=== PATIENT | male | born 1970 | race Hispanic/Latino ===

== ENCOUNTER 2017-11-15 14:54 | Inpatient (IN) | payer OTHER ==
[2017-11-15 15:57] LABS: Basophils # (Auto) 0.1 K/mm3 (0.0-0.1); Basophils % (Auto) 0.9 % (0.0-1.8); Eosinophils # (Auto) 0.9 K/mm3 (0.0-0.4); Eosinophils % (Auto) 6.8 % (0.0-4.3); Hematocrit 33.3 % (35.5-45.6); Hemoglobin 11.2 gm/dl (11.8-15.2); Lymphocytes % (Auto) 14.7 % (13.4-35.0); Mean Corpuscular HGB Conc 34 % (32-34); Mean Corpuscular Hemoglobin 30 pg (28-32); Mean Corpuscular Volume 88 fl (84-94); Monocytes % (Auto) 7.1 % (0.0-7.3); Platelet Count 472 K/mm3 (140-440); Red Blood Count 3.77 M/mm3 (3.65-5.03); Red Cell Distribution Width 14.5 % (13.2-15.2)
--- NOTE | 2017-11-15 15:58 | Emergency Department Report ---
HPI - General Chief Complaint: Chest Pain Time Seen by Provider: 11/15/17 15:30 - HPI HPI: Room 4 The patient is a 47-year-old male presenting with chief complaint of tachycardia. The patient had a aortic valve replacement and annuloplasty 2 weeks ago at [facility]. The patient states 2 days ago began noticing palpitations. The patient states he seems to be a little more short of breath with exertion over the past 2 days. The patient denies any history of fever. Patient had a follow-up with his customer service advocate today (Dr. Gastelum) when turned out the patient to be in atrial flutter and the patient to the ED to be admitted and to consider KHADAR/cardioversion Location: Chest, see above Duration: [See above] Quality: Tachycardia Severity: Moderate Modifying factors: [see above] Context: [see above] Mode of transportation: [not driving] ED Past Medical Hx - Past Medical History Previous Medical History?: Yes - Surgical History Past Surgical History?: Yes Hx Open Heart Surgery: Yes (aortic valve replacement, annuloplasty) - Family History Family history: no significant - Social History Smoking Status: Former Smoker (none since May 2017) Substance Use Type: None (denies illicit drug use), Alcohol (rarely) ED Review of Systems ROS: Stated complaint: FAST HEART RATE, SENT FROM DOCTOR'S OFFICE Other details as noted in HPI Constitutional: denies: fever Respiratory: shortness of breath, SOB with exertion Cardiovascular: chest pain, palpitations, dyspnea on exertion Physical Exam - Physical Exam Vital Signs: Vital Signs 11/15/17 15:06 Temperature 97.6 F Pulse Rate 139 H Respiratory 18 Rate Blood Pressure 133/95 O2 Sat by Pulse 99 Oximetry Physical Exam: GENERAL: The patient is well-developed well-nourished male sitting on stretcher not appearing to be in acute distress. [] HEENT: Normocephalic. Atraumatic. Extraocular motions are intact. Patient has moist mucous membranes. NECK: Supple. No meningitic signs are noted. There is no adenopathy noted. CHEST/LUNGS: Clear to auscultation. There is no respiratory distress noted. HEART/CARDIOVASCULAR: Regular. There is no tachycardia. There is no gallop rub or murmur. ABDOMEN: Abdomen is soft, nontender. Patient has normal bowel sounds. There is no abdominal distention. SKIN: There is no rash. There is no edema. There is no diaphoresis. NEURO: The patient is awake, alert, and oriented. The patient is cooperative. The patient has no focal neurologic deficits. The patient has normal speech and gait. MUSCULOSKELETAL: There is no tenderness or deformity. There is no limitation range of motion. There is no evidence of acute injury. ED Course Vital Signs 11/15/17 15:06 Temperature 97.6 F Pulse Rate 139 H Respiratory 18 Rate Blood Pressure 133/95 O2 Sat by Pulse 99 Oximetry - Consultations Consultation #1: 11/15/17 16:10 Case discussed with [facility] ([place])- states she discussed the case with Dr. Jain and he prefers to use diltiazem for rate control ED Medical Decision Making - Lab Data Result diagrams: 11/15/17 15:43 11/15/17 15:43 Laboratory Tests 11/15/17 11/15/17 11/15/17 15:43 15:43 15:43 WBC 13.9 H RBC 3.77 Hgb 11.2 L Hct 33.3 L MCV 88 MCH 30 MCHC 34 RDW 14.5 Plt Count 472 H Lymph % (Auto) 14.7 [place] % (Auto) 7.1 Eos % (Auto) 6.8 H Baso % (Auto) 0.9 Lymph # 2.0 [place] # 1.0 H Eos # 0.9 H Baso # 0.1 Seg Neutrophils % 70.5 H Seg Neutrophils # 9.8 H PT 13.7 INR 1.00 APTT 42.4 H Sodium 139 Potassium 4.2 Chloride 97.5 L Carbon Dioxide 27 Anion Gap 19 BUN 34 H Creatinine 0.8 Estimated GFR > 60 BUN/Creatinine Ratio 43 Glucose 109 H Calcium 9.0 Total Creatine Kinase 35 L CK-MB (CK-2) 1.6 CK-MB (CK-2) Rel Index 4.5 H Troponin T 0.050 H - EKG Data -: EKG Interpreted by Me EKG shows normal: sinus rhythm Rate: tachycardia - EKG Data When compared to previous EKG there are: previous EKG unavailable - Radiology Data Radiology results: image reviewed (chest x-ray) interpreted by me: Chest x-ray-no focal infiltrates, no pneumothorax, no pleural effusion - Differential Diagnosis atrial flutter, hyperthyroidism, anemia Critical care attestation.: If time is entered above; I have spent that time in minutes in the direct care of this critically ill patient, excluding procedure time. ED Disposition Clinical Impression: Palpitations, Tachycardia Disposition: DC-09 OP ADMIT IP TO THIS HOSP Is pt being admited?: Yes Does the pt Need Aspirin: Yes Condition: Fair Time of Disposition: 16:21 (hospitalist notified (Dr Ayala))
[2017-11-15 16:04] LABS: Partial Thromboplastin Time 42.4 Sec. (24.2-36.6)
[2017-11-15] MEDS ORDERED: CARDIZEM/D5W 100MG/100ML 100 MG/100 ML BAG IV ONE (16:09)
[2017-11-15 16:10] LABS: Creatine Kinase MB 1.6 ng/mL (0.0-4.0)
[2017-11-15 16:13] LABS: BUN/Creatinine Ratio 43; Blood Urea Nitrogen 34 mg/dL (9-20); Hemolysis Index 11
[2017-11-15 16:20] LABS: Free T4 (Free Thyroxine) 1.3 ng/dL (0.76-1.46)
[2017-11-15 16:24] LABS: Chol/HDL Ratio 3.82 %; HDL Cholesterol 34 mg/dL (40-59); LDL Cholesterol,Direct 85 mg/dL (50-130)
--- NOTE | 2017-11-15 16:33 | XRay Report ---
FINAL REPORT EXAM: XR CHEST 1V AP HISTORY: tachycardia TECHNIQUE: upright single view chest PRIORS: None. FINDINGS: Cardiac and mediastinal contours are unremarkable. No focal pulmonary infiltrate is identified. No pleural fluid collection seen. Pulmonary vasculature is unremarkable. Sternotomy wires and cardiac valve prosthesis noted. IMPRESSION: No acute findings in the chest.
--- NOTE | 2017-11-15 17:01 | History and Physical Report ---
History of Present Illness Chief complaint: My chest hurts History of present illness: 47 YO Male with CHF, MVI, presents to ED for evaluation. Pt states that he has experienced rapid herarbeat for the past 2 days with persistent symptoms over the same time period. Pt acknowledges shortness of breath as well. Pt denies fever, chills, CP, Syncope, BRBPR, Unintentional weight loss, night sweats, prolonged travel/immobility, individual/family history of DVT/PE, hemoptysis. Pt seen and evaluated in Lead Architect's office, and EKG revealed Atrial Flutter/ Fib. Pt send to [facility] for further care and evaluation. Pt seen and evaluated in ED and found to have Atrial Fib/Flutter. Cardiology consulted in ED. Past History Past Medical History: heart failure Past Surgical History: valve replacement Social history: single. denies: smoking, alcohol abuse, prescription drug abuse Family history: no significant family history (reviewed) Medications and Allergies Allergies Allergy/AdvReac Type Severity Reaction Status Date / Time No Known Allergies Allergy Unverified 11/15/17 15:09 Home Medications Medication Instructions Recorded Confirmed Last Taken Type Aspirin [Aspirin BABY CHEW TAB] 81 mg PO QAM 11/15/17 11/15/17 Unknown History Carvedilol [Coreg] 6.25 mg PO BID 11/15/17 11/15/17 Unknown History Famotidine 20 mg PO Q12HR 11/15/17 11/15/17 Unknown History Furosemide [Lasix] 20 mg PO QDAY 11/15/17 11/15/17 Unknown History Losartan [Cozaar] 25 mg PO QDAY 11/15/17 11/15/17 Unknown History Potassium Chloride 10 meq PO QDAY 11/15/17 11/15/17 Unknown History Simvastatin [Zocor] 10 mg PO HS 11/15/17 11/15/17 Unknown History oxyCODONE /ACETAMINOPHEN [Percocet 1 tab PO Q4HR 11/15/17 11/15/17 Unknown History 5/325] Active Meds: Active Medications Diltiazem HCl (Cardizem/D5w 100mg/100ml) 100 mg in 100 mls @ 5 mls/hr IV TITR ONE; Protocol Stop: 11/16/17 12:08 Review of Systems Constitutional: no weight loss, no weight gain, no fever, no chills Ears, nose, mouth and throat: no ear pain, no ear discharge, no tinnitis, no decreased hearing, no nose pain Cardiovascular: palpitations, rapid/irregular heart beat, no chest pain, no orthopnea, no edema, no syncope, no lightheadedness, no paroxysmal nocturnal dyspnea Respiratory: no cough, no cough with sputum, no excessive sputum, no hemoptysis Gastrointestinal: no nausea, no vomiting, no diarrhea, no constipation, no change in bowel habits Genitourinary Male: no hematuria, no flank pain, no discharge, no urinary frequency, no urinary hesitancy Rectal: no pain, no incontinence, no bleeding, no itching, no hemorrhoids Musculoskeletal: no neck stiffness, no neck pain, no shooting arm pain, no arm numbness/tingling, no low back pain, no shooting leg pain Integumentary: no rash, no pruritis, no redness, no sores, no wounds, no jaundice Neurological: no head injury, no transient paralysis, no paralysis, no weakness , no parathesias, no numbness, no tingling, no seizures Psychiatric: no anxiety, no memory loss, no change in sleep habits, no sleep disturbances, no insomnia, no paranoia, no depression Endocrine: no cold intolerance, no heat intolerance, no polyphagia, no excessive thirst, no polydipsia, no polyuria, no nocturia, no excessive sweating , no flushing Hematologic/Lymphatic: no easy bruising, no easy bleeding, no lymphadenopathy, no lymphedema Allergic/Immunologic: no urticaria, no allergic rhinitis, no wheezing, no persistent infections, no anaphylaxis, no angioedema Exam - Constitutional Vitals: Temp Pulse Resp BP Pulse Ox 97.6 F 139 H 18 133/95 99 11/15/17 15:06 11/15/17 15:06 11/15/17 15:06 11/15/17 15:06 11/15/17 15:06 General appearance: Present: mild distress - EENT Eyes: Present: PERRL ENT: hearing intact, clear oral mucosa - Neck Neck: Present: supple, normal ROM - Respiratory Respiratory effort: normal Respiratory: bilateral: CTA - Cardiovascular Rhythm: irregularly irregular Heart Sounds: Present: S1 & S2. Absent: rub, click - Extremities Extremities: pulses symmetrical, No edema Peripheral Pulses: within normal limits - Abdominal General gastrointestinal: Present: soft, non-tender, non-distended, normal bowel sounds Male genitourinary: Present: normal - Integumentary Integumentary: Present: clear, warm, dry - Musculoskeletal Musculoskeletal: gait normal, strength equal bilaterally - Psychiatric Psychiatric: appropriate mood/affect, intact judgment & insight - Neurologic Neurologic: CNII-XII intact, moves all extremities Results - Labs CBC & Chem 7: 11/15/17 15:43 11/15/17 15:43 Labs: Abnormal lab results 11/15/17 11/15/17 11/15/17 Range/Units 15:43 15:43 15:43 WBC 13.9 H (4.5-11.0) K/mm3 Hgb 11.2 L (11.8-15.2) gm/dl Hct 33.3 L (35.5-45.6) % Plt Count 472 H (140-440) K/mm3 Eos % (Auto) 6.8 H (0.0-4.3) % Hood # 1.0 H (0.0-0.8) K/mm3 Eos # 0.9 H (0.0-0.4) K/mm3 Seg Neutrophils % 70.5 H (40.0-70.0) % Seg Neutrophils # 9.8 H (1.8-7.7) K/mm3 APTT 42.4 H (24.2-36.6) Sec. Chloride 97.5 L (98-107) mmol/L BUN 34 H (9-20) mg/dL Glucose 109 H (75-100) mg/dL Total Creatine Kinase 35 L (55-170) units/L CK-MB (CK-2) Rel Index 4.5 H (0-4) Troponin T 0.050 H (0.00-0.029) ng/mL Triglycerides 166 H (2-149) mg/dL HDL Cholesterol 34 L (40-59) mg/dL Assessment and Plan - Patient Problems (1) Atrial fibrillation and flutter Current Visit: Yes Status: Acute Plan to address problem: Cardizem drip, cardiology consulted, telemetry monitoring, admit to telemetry, resume prehospital medication, transition to Oral cardizem. (2) CHF (congestive heart failure) Current Visit: Yes Status: Acute Qualifiers: Heart failure type: systolic Heart failure chronicity: acute on chronic Qualified Code(s): I50.23 - Acute on chronic systolic (congestive) heart failure Plan to address problem: Cardiology consulted, Strict I/O, monitor uop q shift, daily weight, afterload reduction, further care as per cardiology. Pt seen in office. (3) Heart valve replaced Current Visit: Yes Status: Acute Plan to address problem: anticoagulation as per cardiology team, Pt currently on aspirin. (4) DVT prophylaxis Current Visit: Yes Status: Acute Plan to address problem: scd to ble while in bed
[2017-11-15] MEDS ORDERED: PERCOCET 5/325 PO ONE (20:06)
[2017-11-15] MEDS ORDERED: PERCOCET 5/325 ONE (20:07)
[2017-11-15] MEDS ORDERED: PRAVACHOL PO SCH (22:00)
[2017-11-15] MEDS ORDERED: NON-FORMULARY (Simvastatin [Zocor] 10 MG) PO SCH (22:00)
[2017-11-15] MEDS ORDERED: COREG ONE (22:24)
[2017-11-15] MEDS ORDERED: PEPCID ONE (22:24)
[2017-11-15] MEDS: COREG PO SCH (22:27)
[2017-11-15] MEDS: PEPCID PO SCH (22:28)
[2017-11-15] MEDS: CARDIZEM PO SCH (23:50)
[2017-11-15] MEDS: PERCOCET 5/325 PO SCH (23:53)
[2017-11-16] MEDS: PERCOCET 5/325 PO SCH ×4 (05:15→14:04)
[2017-11-16] MEDS: CARDIZEM PO SCH ×2 (06:13→13:40)
[2017-11-16] MEDS: LOVENOX SUB-Q SCH ×2 (08:40→12:45)
[2017-11-16] MEDS ORDERED: COZAAR PO SCH (10:00)
[2017-11-16] MEDS ORDERED: LASIX IV SCH (10:00)
[2017-11-16] MEDS ORDERED: LOVENOX SUB-Q SCH (10:00)
[2017-11-16] MEDS ORDERED: K-DUR PO SCH (10:00)
[2017-11-16] MEDS ORDERED: BABY ASPIRIN PO SCH (10:00)
[2017-11-16] MEDS ORDERED: NON-FORMULARY (Potassium Chloride [Potassium Chloride] 10 MEQ) PO SCH (10:00)
[2017-11-16] MEDS ORDERED: HURRICAINE ONE 20% TOPICAL SPRAY MM NR (11:00)
[2017-11-16] MEDS ORDERED: NACL 0.9% 1000 ML 1,000 ML ONE (11:03)
[2017-11-16] MEDS ORDERED: DIPRIVAN 10 MG/ML IV ONE (11:07)
--- NOTE | 2017-11-16 11:23 | Anesthesia Consultation ---
Anesthesia Consult and Med Hx Date of service: 11/16/17 - Airway ROM Head & Neck: Adequate Mental/Hyoid Distance: Adequate Mallampati Class: Class II Intubation Access Assessment: Probably Good - Pulmonary Hx Smoking: Yes (quit 05/2017) Hx Sleep Apnea: Yes (Stated was told by MD post surgery but No sleep study done) - Cardiovascular System Hx Cardia Arrhythmia: Yes (atrial flutter) Hx Valvular Heart Disease: Yes (s/p open aortic valve replacement 10/31) - Other Systems Hx Alcohol Use: Yes (occasionally.)
--- NOTE | 2017-11-16 11:45 | Anesthesia Day of Surgery ---
Anesthesia Day of Surgery - Day of Surgery Patient Examined: Yes Patient H&P Reviewed: Yes Patient is NPO: Yes Beta Blockers: Yes
[2017-11-16 11:56] VITALS: BP 122/82
--- NOTE | 2017-11-16 12:36 | Consultation ---
History of Present Illness Consult date: 11/16/17 Consult reason: arrhythmia History of present illness: 47 year old male referred for admission from the office due to symptomatic atrial flutter with RVR. He is s/p aortic valve replacement, mitral valve repair and tricuspid valve repair 11/01/2017 at [place]. He underwent a KHADAR guided cardioversion today without complications. Past History Past Medical History: heart failure Past Surgical History: valve replacement Social history: single. denies: smoking, alcohol abuse, prescription drug abuse Family history: no significant family history (reviewed) Medications and Allergies Allergies Allergy/AdvReac Type Severity Reaction Status Date / Time No Known Allergies Allergy Unverified 11/15/17 15:09 Home Medications Medication Instructions Recorded Confirmed Last Taken Type Aspirin [Aspirin BABY CHEW TAB] 81 mg PO QAM 11/15/17 11/15/17 Unknown History Carvedilol [Coreg] 6.25 mg PO BID 11/15/17 11/15/17 Unknown History Famotidine 20 mg PO Q12HR 11/15/17 11/15/17 Unknown History Furosemide [Lasix] 20 mg PO QDAY 11/15/17 11/15/17 Unknown History Losartan [Cozaar] 25 mg PO QDAY 11/15/17 11/15/17 Unknown History Potassium Chloride 10 meq PO QDAY 11/15/17 11/15/17 Unknown History Simvastatin [Zocor] 10 mg PO HS 11/15/17 11/15/17 Unknown History oxyCODONE /ACETAMINOPHEN [Percocet 1 tab PO Q4HR 11/15/17 11/15/17 Unknown History 5/325] Active Meds: Active Medications Aspirin (Baby Aspirin) 81 mg PO QAM [facility] Benzocaine (Hurricaine One 20% Topical [place]) 3 spray MM PREOP NR Stop: 11/16/17 23:59 Last Admin: 11/16/17 11:20 Dose: 3 spray Carvedilol (Coreg) 6.25 mg PO BID [facility] Last Admin: 11/15/17 22:27 Dose: 6.25 mg Diltiazem HCl (Cardizem) 30 mg PO Q6HR [facility] Last Admin: 11/16/17 06:13 Dose: 30 mg Enoxaparin Sodium (Lovenox) 90 mg 1 mg/kg (90 mg) SUB-Q Q12HR [facility] Last Admin: 11/16/17 08:40 Dose: 90 mg Famotidine (Pepcid) 20 mg PO Q12HR [facility] Last Admin: 11/15/17 22:28 Dose: 20 mg Furosemide (Lasix) 20 mg IV QDAY [facility] Oxycodone/Acetaminophen (Percocet 5/325) 1 tab PO Q4HR [facility] Last Admin: 11/16/17 06:13 Dose: 1 tab Potassium Chloride (K-Dur) 10 meq PO QDAY [facility] Pravastatin Sodium (Pravachol) 20 mg PO QHS [facility] Last Admin: 11/15/17 23:50 Dose: 20 mg Review of Systems All systems: negative Physical Examination Vital Signs Temp Pulse Resp BP Pulse Ox 97.6 F 139 H 18 133/95 99 11/15/17 15:06 11/15/17 15:06 11/15/17 15:06 11/15/17 15:06 11/15/17 15:06 General appearance: no acute distress HEENT: Positive: PERRL Neck: Positive: neck supple Cardiac: Positive: Irregularly Regular Lungs: Positive: Normal Exam Neuro: Positive: Grossly Intact Results 11/15/17 15:43 11/15/17 15:43 Cardiac Enzymes 11/15/17 Range/Units 15:43 CK-MB (CK-2) 1.6 (0.0-4.0) ng/mL Coagulation 11/15/17 Range/Units 15:43 PT 13.7 (12.2-14.9) Sec. INR 1.00 (0.87-1.13) APTT 42.4 H (24.2-36.6) Sec. Lipids 11/15/17 Range/Units 15:43 Triglycerides 166 H (2-149) mg/dL Cholesterol 130 (50-199) mg/dL HDL Cholesterol 34 L (40-59) mg/dL Cholesterol/HDL Ratio 3.82 % CBC 11/15/17 Range/Units 15:43 WBC 13.9 H (4.5-11.0) K/mm3 RBC 3.77 (3.65-5.03) M/mm3 Hgb 11.2 L (11.8-15.2) gm/dl Hct 33.3 L (35.5-45.6) % Plt Count 472 H (140-440) K/mm3 Lymph # 2.0 (1.2-5.4) K/mm3 [place] # 1.0 H (0.0-0.8) K/mm3 Eos # 0.9 H (0.0-0.4) K/mm3 Baso # 0.1 (0.0-0.1) K/mm3 Comprehensive Metabolic Panel 11/15/17 Range/Units 15:43 Sodium 139 (137-145) mmol/L Potassium 4.2 (3.6-5.0) mmol/L Chloride 97.5 L (98-107) mmol/L Carbon Dioxide 27 (22-30) mmol/L BUN 34 H (9-20) mg/dL Creatinine 0.8 (0.8-1.5) mg/dL Glucose 109 H (75-100) mg/dL Calcium 9.0 (8.4-10.2) mg/dL EKG interpretations - Telemetry EKG Rhythm: Atrial Flutter Assessment and Plan Atrial flutter with RVR s/p KHADAR guided cardioversion Non-ischemic cardiomyopathy, LVEF 20% Bioprosthetic aortic valve, normal function s/p mitral valve repair, mild mitral regurgitation s/p tricuspid valve repair, mild tricuspid regurgitation Recommendations: Continue lovenox Start warfarin therapy May go home on lovenox SC and warfarin Follow-up on Sunday in office to check INR
[2017-11-16] MEDS: COREG PO SCH (12:44)
[2017-11-16] MEDS: PEPCID PO SCH (12:58)
[2017-11-16] MEDS ORDERED: CORDARONE PO SCH (13:30)
--- NOTE | 2017-11-16 14:42 | Discharge Summary ---
Providers - Providers Date of Admission: 11/15/17 21:51 Date of discharge: 11/16/17 Attending physician: ANA WOO 11/15/17 17:27 Consult to Cardiology [CONS] Routine Consulting Provider: EZEQUIEL SHANE Reason For Exam: atrial fib/flutter Primary care physician: JUAN JOSE BACA Hospitalization Condition: Fair Hospital course: 47 year old male referred for admission from the office due to symptomatic atrial flutter with RVR. He is s/p aortic valve replacement, mitral valve repair and tricuspid valve repair 11/01/2017 at [place]. He underwent a KHADAR guided cardioversion today by cardiology without complications. he was placed on therapeutic dose of lovenox and Started on warfarin therapy. He will be discharge home on lovenox SC and warfarin. He has Follow-up at cardiology clinic on Sunday to check INR. Discharge diagnosis: Atrial flutter with RVR s/p KHADAR guided cardioversion Non-ischemic cardiomyopathy, LVEF 20% Bioprosthetic aortic valve, normal function s/p mitral valve repair, mild mitral regurgitation s/p tricuspid valve repair, mild tricuspid regurgitation Disposition: - TO HOME OR SELFCARE Time spent for discharge: 34 minutes Core Measure Documentation - Palliative Care Palliative Care/ Comfort Measures: Not Applicable - Core Measures Any of the following diagnoses?: history only Exam - Constitutional Vitals: Temp Pulse Resp BP Pulse Ox 98.2 F 87 20 122/82 97 11/16/17 07:10 11/16/17 11:54 11/16/17 11:54 11/16/17 11:54 11/16/17 11:54 General appearance: Present: no acute distress, well-nourished - EENT Eyes: Present: PERRL ENT: hearing intact, clear oral mucosa - Neck Neck: Present: supple, normal ROM - Respiratory Respiratory effort: normal Respiratory: bilateral: CTA - Cardiovascular Heart Sounds: Present: S1 & S2. Absent: rub, click - Extremities Extremities: pulses symmetrical, No edema Peripheral Pulses: within normal limits - Abdominal General gastrointestinal: Present: soft, non-tender, non-distended, normal bowel sounds - Integumentary Integumentary: Present: clear, warm, dry - Musculoskeletal Musculoskeletal: gait normal, strength equal bilaterally - Psychiatric Psychiatric: appropriate mood/affect, intact judgment & insight - Neurologic Neurologic: CNII-XII intact, moves all extremities Plan Activity: advance as tolerated Weight Bearing Status: Non-Weight Bearing Diet: low fat, low salt Follow up with: JUAN JOSE BACA MD [Primary Care Provider] - 3-5 Days Forms: Warfarin Discharge Instruction Prescriptions: Enoxaparin [Lovenox] 90 mg SUB-Q Q12HR #10 syringe Warfarin [Coumadin] 5 mg PO DAILY@1700 #10 tablet
[2017-11-16] MEDS ORDERED: COUMADIN PO SCH (17:00)
--- NOTE | 2017-11-17 02:36 | Procedure Note ---
CARDIOVERSION REPORT INDICATION: Atrial flutter with rapid ventricular rate. ORDERING PHYSICIAN: Ant Jain MD DESCRIPTION OF PROCEDURE: After obtaining written consent and after documenting the absence of left atrial appendage clot, the patient was deeply sedated with propofol in the presence of anesthesia staff. A 100 joule synchronized shock was administered with successful conversion from atrial flutter to normal sinus rhythm. IMPRESSION: Successful cardioversion from atrial flutter to normal sinus rhythm after 100 joule synchronized shock. RECOMMENDATION: To start amiodarone and Coumadin. Target INR of 2-3. JOB# [id number] KYLIE/ABHIJEET
[2017-11-17] MEDS ORDERED: COZAAR PO SCH (10:00)
== END 2017-11-16 15:53 | disposition home or self-care (01) | DRG 308 ==
LOC: ED 14:54 → 4A 21:51
PROVIDERS: ADMIT Internal Medicine; ATTEND Internal Medicine
PROC: 5A2204Z Restoration of Cardiac Rhythm, Single (ICD-10-PCS; principal; 2017-11-16)
PROC: B24BZZ4 Ultrasonography of Heart with Aorta, Transesophageal (ICD-10-PCS; 2017-11-16)
DX: I48.92 Unspecified atrial flutter (principal); I50.23 Acute on chronic systolic (congestive) heart failure; I48.91 Unspecified atrial fibrillation; I42.8 Other cardiomyopathies; G47.30 Sleep apnea, unspecified; Z95.4 Presence of other heart-valve replacement; Z79.82 Long term (current) use of aspirin; Z79.01 Long term (current) use of anticoagulants
CPT/HCPCS: 36415; 71045; 80048; 80061; 82550; 82553; 83880; 84439; 84443; 84484; 85025; 85610; 85730; 93005; 93010; 93312; 93320; 93325; 99285; A9270-GY; J1650; J2704; J7030